=== PATIENT | male | born 1995 | race Hispanic/Latino ===

== ENCOUNTER 2016-07-04 11:27 | Emergency (ER) | payer SELFPAY ==
[2016-07-04 11:51] VITALS: BP 152/91
[2016-07-04] MEDS ORDERED: CLEOCIN PO ONE ×2 (14:54→16:00)
[2016-07-04] MEDS ORDERED: NORCO 5/325 PO ONE (14:54)
--- NOTE | 2016-07-04 14:58 | Emergency Department Report ---
ED ENT HPI - General Chief complaint: Dental/Oral Stated complaint: BAD TOOTH/ABCESS Time Seen by Provider: 07/04/16 14:53 Source: patient Mode of arrival: Ambulatory Limitations: No Limitations - History of Present Illness Initial comments: 20-year-old male that comes in for complaint of tooth pain with a history of dental caries. Patient reports that the tooth pain has been going on for 3 weeks now 1 week ago swelling started. She reports that he does not have dental insurance and does not have a dentist. He reports it's difficult to chew. Denies any fever or chills. No sore throat. MD complaint: tooth pain - Related Data Previous Rx's Medication Instructions Recorded Last Taken Type Clindamycin [Clindamycin CAP] 300 mg PO Q8H #30 cap 07/04/16 Unknown Rx Ibuprofen [Motrin 600 MG tab] 600 mg PO Q8H PRN #30 tablet 07/04/16 Unknown Rx Allergies Allergy/AdvReac Type Severity Reaction Status Date / Time No Known Allergies Allergy Unverified 07/04/16 11:48 ED Dental HPI - General Chief complaint: Dental/Oral Stated complaint: BAD TOOTH/ABCESS Time Seen by Provider: 07/04/16 14:53 Source: patient Mode of arrival: Ambulatory Limitations: No Limitations - Related Data Previous Rx's Medication Instructions Recorded Last Taken Type Clindamycin [Clindamycin CAP] 300 mg PO Q8H #30 cap 07/04/16 Unknown Rx Ibuprofen [Motrin 600 MG tab] 600 mg PO Q8H PRN #30 tablet 07/04/16 Unknown Rx Allergies Allergy/AdvReac Type Severity Reaction Status Date / Time No Known Allergies Allergy Unverified 07/04/16 11:48 ED Review of Systems ROS: Stated complaint: BAD TOOTH/ABCESS Other details as noted in HPI Eyes: denies: eye pain ENT: dental pain. denies: throat pain Respiratory: denies: cough, shortness of breath Cardiovascular: denies: chest pain ED Past Medical Hx - Past Medical History Previous Medical History?: Yes Additional medical history: dental caries - Surgical History Past Surgical History?: No - Social History Smoking Status: Current Every Day Smoker Substance Use Type: None - Medications Home Medications: Home Medications Medication Instructions Recorded Confirmed Last Taken Type Clindamycin [Clindamycin CAP] 300 mg PO Q8H #30 cap 07/04/16 Unknown Rx Ibuprofen [Motrin 600 MG tab] 600 mg PO Q8H PRN #30 tablet 07/04/16 Unknown Rx ED Physical Exam - General Limitations: No Limitations General appearance: alert, in no apparent distress - Head Head exam: Present: atraumatic - Eye Eye exam: Present: normal appearance - Expanded ENT Exam Expanded Teeth exam: Present: dental caries, dental tenderness # (19) Throat exam: Positive: other (F lower jaw tenderness) - Neck Neck exam: Absent: tenderness, lymphadenopathy ED Course Vital Signs 07/04/16 11:48 Temperature 99.6 F Pulse Rate 104 H Blood Pressure 152/91 O2 Sat by Pulse 100 Oximetry ED Medical Decision Making - Medical Decision Making He has been evaluated by this provider in fast track. We will give patient an [place] for pain control and 1 dose of clindamycin 600 mg by mouth now. We will discharge the patient on pain medication and clindamycin with a referral to a dentist. Patient verbalized understanding Critical care attestation.: If time is entered above; I have spent that time in minutes in the direct care of this critically ill patient, excluding procedure time. ED Disposition Clinical Impression: Tooth caries Disposition: DISCHARGED TO HOME OR SELFCARE Is pt being admited?: No Does the pt Need Aspirin: No Condition: Stable Instructions: Dental Caries (ED), Dental Abscess (ED) Additional Instructions: Plate all antibiotics as prescribed use ibuprofen for pain is very important for you to follow-up with a dentist to have the tooth removed. Prescriptions: Clindamycin [Clindamycin CAP] 300 mg PO Q8H #30 cap Ibuprofen [Motrin 600 MG tab] 600 mg PO Q8H PRN #30 tablet PRN Reason: Pain Referrals: PRIMARY CARE, [Primary Care Provider] - 3-5 Days [facility] [Outside] - 3-5 Days
== END 2016-07-04 15:48 | disposition home or self-care (01) ==
LOC: ED 11:27
DX: K02.9 Dental caries, unspecified (principal); F17.200 Nicotine dependence, unspecified, uncomplicated
CPT/HCPCS: 99282